=== PATIENT | female | born 1960 | race Caucasian/White ===

== ENCOUNTER 2024-08-11 15:35 | Inpatient (IN) | payer OTHER ==
[~2024-08-11] VITALS: Ht 165.1 cm; Wt 69.9 kg
[2024-08-11 19:47] VITALS: BP 150/80; PULSE 107; RESP 18; TEMP 99.1; O2SAT 98
[2024-08-11] MEDS ORDERED: GABAPENTIN300 MG PO (21:33)
[2024-08-11] MEDS ORDERED: ATORVASTATIN CA40 MG PO (21:33)
[2024-08-11] MEDS ORDERED: DULOXETINE HCL60 MG PO (21:33)
[2024-08-11] MEDS ORDERED: LOSARTAN POTAS100 MG PO (21:33)
[2024-08-11] MEDS ORDERED: METOPROLOL TAR100 MG PO (21:33)
[2024-08-11] MEDS ORDERED: AMLODIPINE BESYL5 MG PO (21:33)
[2024-08-11] MEDS ORDERED: ONDANSETRON HCL INJ 2MG/ML 2ML 2 MG/ML VIAL IV PRN (22:00)
[2024-08-11] MEDS ORDERED: Morphine 2mg Syringe 2 MG/ML SYR IV PRN (22:00)
[2024-08-11] MEDS ORDERED: DEXTROSE 50% SYRINGE 50 ML IV PRN ×2 (22:15)
[2024-08-11 22:17] LABS: BASOPHILS % 0.2 % (0.0-1.0); EOSINOPHILS % 0.1 % (0.0-6.0); HEMATOCRIT 39.6 % (34.2-44.1); HEMOGLOBIN 13.6 g/dL (12.0-16.0); LYMPHOCYTES # (AUTO) 1.2 (1.0-3.2); LYMPHOCYTES % 6.4 % (18.0-39.1); MEAN CORPUSCULAR HEMOGLOBIN 29.2 pg (28-32); MEAN CORPUSCULAR HGB CONC 34.3 g/dL (31-35); MEAN CORPUSCULAR VOLUME 85.2 fL (81-99); MONOCYTES # (AUTO) 1.1 (0.2-0.8); NEUTROPHILS % 86.4 % (38.7-80.0); PLATELET COUNT 258 x10e3/uL (140-360); RED BLOOD COUNT 4.65 x10e6/uL (3.6-5.1); RED CELL DISTRIBUTION WIDTH 12.3 % (11.7-14.4)
[2024-08-11 22:21] VITALS: BP 150/80; PULSE 107; RESP 18; TEMP 99.1; O2SAT 98
[2024-08-11 22:30] LABS: CLARITY,URINE CLEAR (CLEAR); COLOR,URINE YELLOW (YELLOW)
[2024-08-11 22:31] LABS: BILIRUBIN,URINE SMALL (NEGATIVE); GLUCOSE, URINE 500 (NEGATIVE); KETONES,URINE 2+ (NEGATIVE); LEUKOCYTE ESTERASE ,URINE NEGATIVE (NEGATIVE); NITRITE,URINE NEGATIVE (NEGATIVE); PH,URINE 5.5 (5 - 7); PROTEIN,URINE DIPSTICK 1+ (NEGATIVE); URINE UROBILINOGEN 0.2 mg/dL (0.2 - 1)
[2024-08-11 22:32] VITALS: BP 150/50; PULSE 107; RESP 18; TEMP 99.1; O2SAT 98
[2024-08-11] MEDS: HYDROCODONE/APAP 5MG-325MG TAB PO PRN (22:41)
[2024-08-11] MEDS: SODIUM CHLORIDE 0.9% 1000ML 1,000 ML IV SCH (22:43)
[2024-08-11 22:46] LABS: INR 0.96; PROTHROMBIN TIME 13.7 seconds (11.9-14.5)
[2024-08-11] MEDS: INSULIN LISPRO 100 UNIT/1 ML 3ML VIAL SQ ONE (22:46)
[2024-08-11 22:47] LABS: PARTIAL THROMBOPLASTIN TIME 34.4 seconds (23.8-35.5)
[2024-08-11 22:56] LABS: ALBUMIN 3.6 g/dL (3.5-5.0); ALBUMIN/GLOBULIN RATIO 0.7 (0.8-2.0); ANION GAP 21.7 mmol/L (8-16); BILIRUBIN,TOTAL 0.5 mg/dL (0.2-1.2); CALCIUM 10.3 mg/dL (8.4-10.2); CHOL/HDL RATIO 4.1 (3.0-3.6); CREATININE, SERUM 1.16 mg/dL (0.57-1.11); POTASSIUM 3.7 mmol/L (3.5-5.1); TOTAL PROTEIN 8.6 g/dL (6.5-8.1)
[2024-08-11 23:08] VITALS: BP 146/75; PULSE 107; RESP 18; TEMP 99.8; O2SAT 100
[2024-08-11 23:18] LABS: BACTERIA,URINE MODERATE /HPF; EPITHELIAL CELLS,URINE FEW /LPF; RBC,URINE 0-5 /HPF (0-5); WBC,URINE (MAN) 0-5 /HPF (0-5)
[2024-08-11] MEDS: Vancomycin IV 1 GM in SODIUM CHLORIDE 0.9% 250ML 250 ML IV ONE (23:37)
[2024-08-12] VITALS (9 sets, daily range): BP systolic 121–128; BP diastolic 64–73; PULSE 79–108; RESP 18; TEMP 97.1–99.9; O2SAT 96–100
[2024-08-12] MEDS ORDERED: AMLODIPINE BESYLATE 5 MG TAB PO SCH (09:00)
[2024-08-12] MEDS: CEFTRIAXONE 2 GM in SODIUM CHLORIDE 0.9% 100 ML IV SCH (09:36)
[2024-08-12] MEDS: DULOXETINE HCL 30 MG DELAYED RELEASE PO SCH (09:37)
[2024-08-12] MEDS: METOPROLOL TARTRATE 50 MG TAB PO SCH (09:37)
[2024-08-12] MEDS: INSULIN LISPRO 100 UNIT/1 ML 3ML VIAL SQ SCH ×2 (09:48→16:10)
[2024-08-12] MEDS: Doxycycline IV 100 MG in SODIUM CHLORIDE 0.9% 100 ML IV SCH (13:34)
[2024-08-12] MEDS ORDERED: DEXTROSE 50% SYRINGE 50 ML IV PRN (14:15)
[2024-08-12] MEDS ORDERED: DIPHENHYDRAMINE HCL 25 MG CAP PO PRN (14:15)
[2024-08-12] MEDS ORDERED: BENZONATATE 100 MG CAP PO PRN (14:15)
[2024-08-12] MEDS ORDERED: DOCUSATE SODIUM 100 MG CAP PO PRN (14:15)
[2024-08-12] MEDS ORDERED: HYDRALAZINE HCL 20 MG/ML VIAL IV PRN (14:15)
[2024-08-12] MEDS ORDERED: LIDOCAINE 4% PATCH TP PRN (14:15)
[2024-08-12] MEDS ORDERED: ALBUTEROL/IPRATROPIUM 3 ML NEB NEB PRN (14:15)
[2024-08-12] MEDS ORDERED: POTASSIUM CHLORIDE 20 MEQ TAB CR PO PRN (14:15)
[2024-08-12] MEDS: GABAPENTIN 300 MG CAP PO SCH (16:12)
[2024-08-12] MEDS: ENOXAPARIN SOD INJ 40 MG/0.4 ML SYR SC SCH (16:13)
[2024-08-12] MEDS ORDERED: INSULIN GLARGINE 100 UNITS/ML VIAL SQ SCH (21:00)
[2024-08-12] MEDS: SIMETHICONE 80 MG CHEW PO PRN (21:12)
[2024-08-12] MEDS: INSULIN GLARGINE 100 UNITS/ML VIAL SQ SCH (21:55)
[2024-08-13] VITALS (13 sets, daily range): BP systolic 91–141; BP diastolic 43–76; PULSE 77–130; RESP 18–20; TEMP 97.6–98.3; O2SAT 95–99
[2024-08-13] MEDS: ACETAMINOPHEN 325 MG TAB PO PRN (04:50)
[2024-08-13 06:22] LABS: BASOPHILS % 0.3 % (0.0-1.0); EOSINOPHILS % 0.1 % (0.0-6.0); HEMATOCRIT 34.7 % (34.2-44.1); LYMPHOCYTES # (AUTO) 1.3 (1.0-3.2); LYMPHOCYTES % 8.6 % (18.0-39.1); MEAN CORPUSCULAR HEMOGLOBIN 29.6 pg (28-32); MEAN CORPUSCULAR HGB CONC 34.6 g/dL (31-35); MEAN CORPUSCULAR VOLUME 85.5 fL (81-99); MONOCYTES # (AUTO) 1.1 (0.2-0.8); MONOCYTES % 7.2 % (4.4-11.3); NEUTROPHILS # (AUTO) 12.4 (2.1-6.9); NEUTROPHILS % 82.6 % (38.7-80.0); PLATELET COUNT 250 x10e3/uL (140-360); RED BLOOD COUNT 4.06 x10e6/uL (3.6-5.1); RED CELL DISTRIBUTION WIDTH 12.3 % (11.7-14.4); WHITE BLOOD COUNT 15.04 x10e3/uL (4.8-10.8)
[2024-08-13 06:41] LABS: ANION GAP 18.3 mmol/L (8-16); CALCIUM 9.2 mg/dL (8.4-10.2); CHOL/HDL RATIO 4.4 (3.0-3.6); CREATININE, SERUM 0.7 mg/dL (0.57-1.11); MAGNESIUM 1.3 MG/DL (1.3-2.1); PHOSPHORUS 1.9 MG/DL (2.3-4.7); POTASSIUM 3.3 mmol/L (3.5-5.1)
[2024-08-13 07:02] LABS: THYROID STIMULATING HORMONE 0.431 uIU/mL (0.350-4.940)
[2024-08-13] MEDS: PANTOPRAZOLE SOD 40 MG TABEC PO SCH (07:30)
[2024-08-13] MEDS: ASPIRIN 81 MG ENTERIC COATED PO SCH (09:00)
[2024-08-13] MEDS: AMLODIPINE BESYLATE 5 MG TAB PO SCH (09:00)
[2024-08-13] MEDS: LOSARTAN POTASSIUM 25 MG TAB PO SCH (09:00)
[2024-08-13] MEDS: DULOXETINE HCL 30 MG DELAYED RELEASE PO SCH (09:00)
[2024-08-13] MEDS ORDERED: FENTANYL CITRATE/PF 100MCG/2 ML INJ ONE (12:20)
[2024-08-13] MEDS ORDERED: LIDOCAINE HCL 2% LOCAL INJ 5 ML SDV VIAL INJ ONE (12:20)
[2024-08-13] MEDS ORDERED: SEVOFLURANE INHAL SOLN 250 ML PEN BTL ONE (12:20)
[2024-08-13] MEDS ORDERED: PROPOFOL IV EMULSION 10 MG/ML 20 ML VIAL ONE (12:20)
[2024-08-13] MEDS ORDERED: FAMOTIDINE 20 MG/2 ML VIAL IV ONE (12:25)
[2024-08-13] MEDS ORDERED: ONDANSETRON HCL INJ 2MG/ML 2ML 2 MG/ML VIAL ONE ×2 (12:25→12:46)
[2024-08-13] MEDS ORDERED: METOPROLOL TARTRATE INJ 1 MG/ML VIAL ONE (12:46)
[2024-08-13] MEDS ORDERED: METOCLOPRAMIDE HCL 10 MG/2ML VIAL ONE (12:46)
[2024-08-13] MEDS ORDERED: ACETAMINOPHEN 1000 MG/100 ML 100 ML IV ONE (13:03)
[2024-08-13] MEDS ORDERED: POTASSIUM PHOSPHATE 15 MM in SODIUM CHLORIDE 0.9% 250ML 250 ML IV ONE (15:45)
[2024-08-13] MEDS: MAGNESIUM SULFATE 2GM/50ML 50 ML IV ONE (17:14)
[2024-08-13] MEDS: INSULIN LISPRO 100 UNIT/1 ML 3ML VIAL SQ SCH (17:20)
[2024-08-13] MEDS: CEFTRIAXONE 2 GM in SODIUM CHLORIDE 0.9% 100 ML IV SCH (17:45)
[2024-08-13] MEDS: POTASSIUM PHOSPHATE 15 MM in SODIUM CHLORIDE 0.9% 250ML 250 ML IV ONE (18:19)
[2024-08-13] MEDS: INSULIN GLARGINE 100 UNITS/ML VIAL SQ SCH (21:41)
[2024-08-13] MEDS: MELATONIN 5 MG TABLET PO PRN (22:35)
[2024-08-14] VITALS (9 sets, daily range): BP systolic 100–112; BP diastolic 52–71; PULSE 67–123; RESP 17–18; TEMP 97.8–100; O2SAT 96–100
[2024-08-14 06:51] LABS: BASOPHILS # (AUTO) 0.1 (0.0-0.1); BASOPHILS % 0.5 % (0.0-1.0); EOSINOPHILS # (AUTO) 0.2 (0.0-0.4); EOSINOPHILS % 2.3 % (0.0-6.0); HEMATOCRIT 33.2 % (34.2-44.1); HEMOGLOBIN 11.3 g/dL (12.0-16.0); LYMPHOCYTES # (AUTO) 1.9 (1.0-3.2); LYMPHOCYTES % 18.3 % (18.0-39.1); MEAN CORPUSCULAR HEMOGLOBIN 29.4 pg (28-32); MEAN CORPUSCULAR VOLUME 86.5 fL (81-99); MONOCYTES # (AUTO) 0.8 (0.2-0.8); MONOCYTES % 8.1 % (4.4-11.3); NEUTROPHILS # (AUTO) 7.3 (2.1-6.9); NEUTROPHILS % 69.7 % (38.7-80.0); PLATELET COUNT 240 x10e3/uL (140-360); RED BLOOD COUNT 3.84 x10e6/uL (3.6-5.1); RED CELL DISTRIBUTION WIDTH 12.6 % (11.7-14.4); WHITE BLOOD COUNT 10.41 x10e3/uL (4.8-10.8)
[2024-08-14 07:31] LABS: ANION GAP 14.4 mmol/L (8-16); CALCIUM 8.5 mg/dL (8.4-10.2); CREATININE, SERUM 0.61 mg/dL (0.57-1.11); MAGNESIUM 1.6 MG/DL (1.3-2.1); PHOSPHORUS 2.2 MG/DL (2.3-4.7)
[2024-08-14 07:33] LABS: POTASSIUM 3.4 mmol/L (3.5-5.1)
[2024-08-14 12:00] LABS: PROLACTIN 37.3 ng/mL (3.6-25.2)
[2024-08-14] MEDS: POTASSIUM PHOSPHATE 15 MM in SODIUM CHLORIDE 0.9% 250ML 250 ML IV ONE (15:12)
[2024-08-14] MEDS: POTASSIUM CHLORIDE 20 MEQ TAB CR PO ONE (15:19)
[2024-08-14] MEDS: INSULIN LISPRO 100 UNIT/1 ML 3ML VIAL SQ SCH (18:13)
[2024-08-14] MEDS: INSULIN GLARGINE 100 UNITS/ML VIAL SQ SCH (20:47)
[2024-08-15] VITALS (10 sets, daily range): BP systolic 97–134; BP diastolic 52–72; PULSE 77–105; RESP 17–20; TEMP 98–99.2; O2SAT 95–100
[2024-08-15 06:00] LABS: BASOPHILS # (AUTO) 0.1 (0.0-0.1); BASOPHILS % 0.6 % (0.0-1.0); EOSINOPHILS # (AUTO) 0.2 (0.0-0.4); EOSINOPHILS % 2.4 % (0.0-6.0); HEMATOCRIT 33.6 % (34.2-44.1); HEMOGLOBIN 11.3 g/dL (12.0-16.0); LYMPHOCYTES % 23.5 % (18.0-39.1); MEAN CORPUSCULAR HEMOGLOBIN 29.4 pg (28-32); MEAN CORPUSCULAR HGB CONC 33.6 g/dL (31-35); MEAN CORPUSCULAR VOLUME 87.5 fL (81-99); MONOCYTES # (AUTO) 0.7 (0.2-0.8); MONOCYTES % 8.6 % (4.4-11.3); NEUTROPHILS # (AUTO) 5.3 (2.1-6.9); NEUTROPHILS % 63.6 % (38.7-80.0); PLATELET COUNT 256 x10e3/uL (140-360); RED BLOOD COUNT 3.84 x10e6/uL (3.6-5.1); RED CELL DISTRIBUTION WIDTH 12.5 % (11.7-14.4); WHITE BLOOD COUNT 8.33 x10e3/uL (4.8-10.8)
[2024-08-15 06:30] LABS: ANION GAP 15.6 mmol/L (8-16); CALCIUM 8.2 mg/dL (8.4-10.2); CREATININE, SERUM 0.6 mg/dL (0.57-1.11); PHOSPHORUS 3.1 MG/DL (2.3-4.7); POTASSIUM 3.6 mmol/L (3.5-5.1)
[2024-08-16] VITALS (9 sets, daily range): BP systolic 110–135; BP diastolic 64–74; PULSE 82–99; RESP 16–20; TEMP 97.9–98.8; O2SAT 93–99
[2024-08-16 08:54] LABS: BASOPHILS % 0.3 % (0.0-1.0); EOSINOPHILS # (AUTO) 0.1 (0.0-0.4); EOSINOPHILS % 1.3 % (0.0-6.0); HEMATOCRIT 35.2 % (34.2-44.1); HEMOGLOBIN 11.6 g/dL (12.0-16.0); LYMPHOCYTES # (AUTO) 1.2 (1.0-3.2); LYMPHOCYTES % 19.6 % (18.0-39.1); MEAN CORPUSCULAR HEMOGLOBIN 28.8 pg (28-32); MEAN CORPUSCULAR VOLUME 87.3 fL (81-99); MONOCYTES # (AUTO) 0.7 (0.2-0.8); MONOCYTES % 10.7 % (4.4-11.3); NEUTROPHILS # (AUTO) 4.2 (2.1-6.9); NEUTROPHILS % 66.5 % (38.7-80.0); PLATELET COUNT 256 x10e3/uL (140-360); RED BLOOD COUNT 4.03 x10e6/uL (3.6-5.1); RED CELL DISTRIBUTION WIDTH 12.4 % (11.7-14.4); WHITE BLOOD COUNT 6.24 x10e3/uL (4.8-10.8)
[2024-08-16 09:15] LABS: ANION GAP 13.8 mmol/L (8-16); CALCIUM 8.4 mg/dL (8.4-10.2); CREATININE, SERUM 0.61 mg/dL (0.57-1.11); POTASSIUM 3.8 mmol/L (3.5-5.1)
[2024-08-16] MEDS ORDERED: GADOBENATE DIMEGLUMINE 1 ML IV ONE (12:13)
[2024-08-16] MEDS: FLUCONAZOLE 100 MG/NS 50 ML 50 ML IV SCH (17:11)
[2024-08-17] VITALS (10 sets, daily range): BP systolic 93–122; BP diastolic 52–67; PULSE 75–97; RESP 16–18; TEMP 97.7–98.8; O2SAT 94–100
[2024-08-17 06:09] LABS: BASOPHILS % 0.6 % (0.0-1.0); EOSINOPHILS # (AUTO) 0.1 (0.0-0.4); EOSINOPHILS % 2.2 % (0.0-6.0); HEMATOCRIT 33.1 % (34.2-44.1); HEMOGLOBIN 10.7 g/dL (12.0-16.0); LYMPHOCYTES # (AUTO) 1.5 (1.0-3.2); MEAN CORPUSCULAR HEMOGLOBIN 28.9 pg (28-32); MEAN CORPUSCULAR HGB CONC 32.3 g/dL (31-35); MEAN CORPUSCULAR VOLUME 89.5 fL (81-99); MONOCYTES % 15.2 % (4.4-11.3); NEUTROPHILS # (AUTO) 3.7 (2.1-6.9); NEUTROPHILS % 57.4 % (38.7-80.0); PLATELET COUNT 233 x10e3/uL (140-360); RED CELL DISTRIBUTION WIDTH 12.4 % (11.7-14.4); WHITE BLOOD COUNT 6.43 x10e3/uL (4.8-10.8)
[2024-08-17 06:43] LABS: ANION GAP 13.9 mmol/L (8-16); CALCIUM 8.4 mg/dL (8.4-10.2); CREATININE, SERUM 0.6 mg/dL (0.57-1.11); POTASSIUM 3.9 mmol/L (3.5-5.1)
[2024-08-18] VITALS (9 sets, daily range): BP systolic 105–127; BP diastolic 56–72; PULSE 76–113; RESP 16–20; TEMP 97.2–98.2; O2SAT 94–100
[2024-08-19 03:35] VITALS: BP 122/67; PULSE 103; RESP 20; TEMP 98.2; O2SAT 97
[2024-08-19 06:45] VITALS: PULSE 99; RESP 18; O2SAT 95
[2024-08-19 07:48] VITALS: BP 122/67; PULSE 99; RESP 18; TEMP 98.2; O2SAT 95
[2024-08-19 08:41] VITALS: BP 130/68; PULSE 84; RESP 20; TEMP 98.4; O2SAT 97
[2024-08-19 14:35] VITALS: BP 123/67; PULSE 76; RESP 18; TEMP 97.9; O2SAT 100
[2024-08-19] MEDS ORDERED: INSULIN LISPRO 100 UNIT/1 ML 3ML VIAL SQ SCH (16:30)
[2024-08-19] MEDS ORDERED: ATORVASTATIN 10 MG TAB PO SCH (21:00)
== END 2024-08-19 17:45 | disposition home or self-care (01) | DRG 853 ==
LOC: MED/SURG2 15:35
PROVIDERS: ADMIT Internal Medicine; ATTEND Internal Medicine
PROC: 0KBV0ZZ Excision of Right Foot Muscle, Open Approach (ICD-10-PCS; principal; 2024-08-13 12:22)
DX: A41.9 Sepsis, unspecified organism (principal); E11.10 Type 2 diabetes mellitus with ketoacidosis without coma; E11.52 Type 2 diabetes mellitus with diabetic peripheral angiopathy with gangrene; L03.115 Cellulitis of right lower limb; L02.611 Cutaneous abscess of right foot; L97.518 Non-pressure chronic ulcer of other part of right foot with other specified severity; E11.621 Type 2 diabetes mellitus with foot ulcer; E11.42 Type 2 diabetes mellitus with diabetic polyneuropathy; E11.65 Type 2 diabetes mellitus with hyperglycemia; I10 Essential (primary) hypertension; E78.00 Pure hypercholesterolemia, unspecified; R32 Unspecified urinary incontinence; M67.02 Short Achilles tendon (acquired), left ankle; M67.01 Short Achilles tendon (acquired), right ankle; M20.42 Other hammer toe(s) (acquired), left foot; M20.41 Other hammer toe(s) (acquired), right foot; M19.171 Post-traumatic osteoarthritis, right ankle and foot; M25.474 Effusion, right foot; B96.1 Klebsiella pneumoniae [K. pneumoniae] as the cause of diseases classified elsewhere; B95.1 Streptococcus, group B, as the cause of diseases classified elsewhere; H53.8 Other visual disturbances; I25.10 Atherosclerotic heart disease of native coronary artery without angina pectoris; D35.2 Benign neoplasm of pituitary gland; S39.92XA Unspecified injury of lower back, initial encounter; W18.30XA Fall on same level, unspecified, initial encounter; Y92.230 Patient room in hospital as the place of occurrence of the external cause; Z98.890 Other specified postprocedural states; Z91.148 Patient's other noncompliance with medication regimen for other reason; Z87.440 Personal history of urinary (tract) infections; Z90.710 Acquired absence of both cervix and uterus; Z85.3 Personal history of malignant neoplasm of breast; Z92.3 Personal history of irradiation; Z88.8 Allergy status to other drugs, medicaments and biological substances; Z83.3 Family history of diabetes mellitus; Z82.49 Family history of ischemic heart disease and other diseases of the circulatory system
CPT/HCPCS: 36415; 70450; 70553; 71045; 80048; 80053; 80061; 81001; 82948; 83001; 83036; 83615; 83735; 84100; 84146; 84443; 85025; 85610; 85730; 86140; 87040; 87071; 87075; 87086; 87186; 87205; 93005; 93306; 93925; 93970; 94799; 96372; 99252; J0696; J1308; J1450; J1650; J2003; J2405; J2470; J2765; J3475; J7030; J7050

== ENCOUNTER 2024-10-04 05:55 | Inpatient (IN) | payer OTHER ==
[~2024-10-04] VITALS: Ht 162.6 cm; Wt 70.8 kg
[2024-10-04] VITALS (9 sets, daily range): BP systolic 106–126; BP diastolic 63–70; PULSE 75–98; RESP 18–20; TEMP 97.9–98.3; O2SAT 96–100
[~2024-10-04 05:55] MED LIST: AMLODIPINE BESYL5 MG PO; ATORVASTATIN CA40 MG PO; DULOXETINE HCL60 MG PO; GABAPENTIN300 MG PO; LOSARTAN POTAS100 MG PO; METOPROLOL TAR100 MG PO
[2024-10-04 06:53] LABS: BASOPHILS % 0.3 % (0.0-1.0); EOSINOPHILS % 1.3 % (0.0-6.0); LYMPHOCYTES % 11.7 % (18.0-39.1); MONOCYTES % 7.9 % (4.4-11.3); NEUTROPHILS % 78.4 % (38.7-80.0); RED CELL DISTRIBUTION WIDTH 12.5 % (11.7-14.4)
[2024-10-04] MEDS ORDERED: SODIUM CHLORIDE 0.9% 1000ML 1,000 ML IV SCH (07:00)
[2024-10-04 07:11] LABS: INR 0.97
[2024-10-04] MEDS: SODIUM CHLORIDE 0.9% 1000ML 2,100 ML IV ONE (07:16)
[2024-10-04] MEDS: ACETAMINOPHEN 325 MG TAB PO ONE (07:17)
[2024-10-04 07:19] LABS: EST GLOMERULAR FILTRATION RATE 90.0 ML/MIN (>=60)
[2024-10-04] MEDS ORDERED: IOPAMIDOL 370 MG/ML 100 ML INFUS..BTL INJ ONE (07:32)
[2024-10-04] MEDS ORDERED: DIPHENHYDRAMINE HCL 25 MG CAP PO PRN (09:30)
[2024-10-04] MEDS ORDERED: DOCUSATE SODIUM 100 MG CAP PO PRN (09:30)
[2024-10-04] MEDS ORDERED: LIDOCAINE 4% PATCH TP PRN (09:30)
[2024-10-04] MEDS ORDERED: DEXTROSE 50% SYRINGE 50 ML IV PRN (09:30)
[2024-10-04] MEDS ORDERED: MELATONIN 5 MG TABLET PO PRN (09:30)
[2024-10-04] MEDS ORDERED: SIMETHICONE 80 MG CHEW PO PRN (09:30)
[2024-10-04] MEDS ORDERED: POTASSIUM CHLORIDE 20 MEQ TAB CR PO PRN (09:30)
[2024-10-04] MEDS ORDERED: BENZONATATE 100 MG CAP PO PRN (09:30)
[2024-10-04] MEDS ORDERED: ALBUTEROL/IPRATROPIUM 3 ML NEB NEB PRN (09:30)
[2024-10-04] MEDS ORDERED: HYDRALAZINE HCL 20 MG/ML VIAL IV PRN (09:30)
[2024-10-04] MEDS: DEXTROSE 5%/0.9% SOD CHL 1,000 ML IV SCH (11:35)
[2024-10-04] MEDS: Vancomycin IV 1 GM in SODIUM CHLORIDE 0.9% 250ML 250 ML IV SCH (11:35)
[2024-10-04] MEDS ORDERED: ASPIRIN EC81 MG PO (13:20)
[2024-10-04] MEDS ORDERED: LANTUS 3ML100 UNITS/ SQ (13:20)
[2024-10-04] MEDS ORDERED: HUMALOG SQ (13:21)
[2024-10-04] MEDS: ACETAMINOPHEN 325 MG TAB PO PRN (13:52)
[2024-10-04] MEDS ORDERED: HUMALOG100 UNIT/3 SQ (15:42)
[2024-10-04] MEDS: ENOXAPARIN SOD INJ 40 MG/0.4 ML SYR SC SCH (16:15)
[2024-10-04] MEDS: METOPROLOL TARTRATE 50 MG TAB PO SCH (16:15)
[2024-10-04] MEDS ORDERED: METOPROLOL TARTRATE 50 MG TAB PO SCH (17:00)
[2024-10-04] MEDS: GABAPENTIN 300 MG CAP PO SCH (17:06)
[2024-10-04] MEDS ORDERED: NON-FORMULARY MEDICATION (Insulin Glargine (Lantus 3ML Pen) 50 UNITS) SQ SCH (21:00)
[2024-10-04] MEDS ORDERED: ATORVASTATIN 40 MG TAB PO SCH (21:00)
[2024-10-04] MEDS: ATORVASTATIN 40 MG TAB PO SCH (21:06)
[2024-10-04] MEDS: INSULIN GLARGINE 100 UNITS/ML VIAL SQ SCH (21:08)
[2024-10-05] VITALS (13 sets, daily range): BP systolic 102–129; BP diastolic 50–73; PULSE 88–97; RESP 16–20; TEMP 98–98.7; O2SAT 95–100
[2024-10-05 06:49] LABS: BASOPHILS % 0.3 % (0.0-1.0); EOSINOPHILS % 3.5 % (0.0-6.0); LYMPHOCYTES % 35.1 % (18.0-39.1); MONOCYTES % 10.7 % (4.4-11.3); NEUTROPHILS % 50.2 % (38.7-80.0); RED CELL DISTRIBUTION WIDTH 12.4 % (11.7-14.4)
[2024-10-05 07:13] LABS: EST GLOMERULAR FILTRATION RATE 101.0 ML/MIN (>=60)
[2024-10-05 07:16] LABS: CHOL/HDL RATIO 3.5 (3.0-3.6); LDL CHOLESTEROL 73.0 MG/DL (60-130)
[2024-10-05] MEDS: DULOXETINE HCL 30 MG DELAYED RELEASE PO SCH (08:54)
[2024-10-05] MEDS: PANTOPRAZOLE SOD 40 MG TABEC PO SCH (08:55)
[2024-10-05] MEDS: ASPIRIN 81 MG ENTERIC COATED PO SCH (08:55)
[2024-10-05] MEDS: AMLODIPINE BESYLATE 5 MG TAB PO SCH (08:55)
[2024-10-05] MEDS: LOSARTAN POTASSIUM 100 MG TAB PO SCH (08:55)
[2024-10-05] MEDS ORDERED: ASPIRIN 81 MG ENTERIC COATED PO SCH (09:00)
[2024-10-05] MEDS ORDERED: LOSARTAN POTASSIUM 100 MG TAB PO SCH (09:00)
[2024-10-05] MEDS ORDERED: SODIUM CHLORIDE 0.9% 100 ML ONE (09:46)
[2024-10-05] MEDS ORDERED: IOPAMIDOL 370 MG/ML 100 ML INFUS..BTL INJ ONE (09:46)
[2024-10-05] MEDS ORDERED: DEXTROSE 50% SYRINGE 50 ML IV PRN (12:45)
[2024-10-05] MEDS: INSULIN LISPRO 100 UNIT/1 ML 3ML VIAL SQ SCH (16:16)
[2024-10-06] VITALS (8 sets, daily range): BP systolic 117–127; BP diastolic 58–71; PULSE 83–98; RESP 14–20; TEMP 97.3–98.5; O2SAT 97–100
[2024-10-06 06:22] LABS: BASOPHILS % 0.8 % (0.0-1.0); EOSINOPHILS % 3.7 % (0.0-6.0); LYMPHOCYTES % 34.7 % (18.0-39.1); MONOCYTES % 9.3 % (4.4-11.3); NEUTROPHILS % 51.3 % (38.7-80.0); RED CELL DISTRIBUTION WIDTH 12.3 % (11.7-14.4)
[2024-10-06 07:03] LABS: EST GLOMERULAR FILTRATION RATE 99.0 ML/MIN (>=60)
[2024-10-06] MEDS: AMLODIPINE BESYLATE 5 MG TAB PO SCH (08:22)
[2024-10-06] MEDS: POLYETHYLENE GLYCOL 3350 17 GM PACK PO PRN (16:08)
[2024-10-06] MEDS: TRAMADOL HCL 50 MG TAB PO PRN (16:39)
[2024-10-06] MEDS: ONDANSETRON HCL INJ 2MG/ML 2ML 2 MG/ML VIAL IV PRN (21:26)
[2024-10-06] MEDS: Morphine 4mg INJECTION 4 MG/ML INJ IV PRN (21:26)
[2024-10-07] VITALS (9 sets, daily range): BP systolic 113–139; BP diastolic 62–76; PULSE 93–102; RESP 16–19; TEMP 97.6–98.6; O2SAT 98–100
[2024-10-07 05:47] LABS: BASOPHILS % 0.5 % (0.0-1.0); EOSINOPHILS % 3.7 % (0.0-6.0); LYMPHOCYTES % 38.5 % (18.0-39.1); MONOCYTES % 8.2 % (4.4-11.3); NEUTROPHILS % 48.8 % (38.7-80.0); RED CELL DISTRIBUTION WIDTH 12.3 % (11.7-14.4)
[2024-10-07 06:15] LABS: EST GLOMERULAR FILTRATION RATE 98.0 ML/MIN (>=60)
[2024-10-07 09:39] LABS: EOSINOPHILS % (MANUAL) 7 % (0-7); LYMPHOCYTES % (MANUAL) 29 % (19-48); MONOCYTES % (MANUAL) 9 % (3.4-9.0); NEUTROPHILS % (MANUAL) 50 % (40-74); PLATELET ESTIMATE ADEQUATE; REACTIVE LYMPHOCYTES 5
[2024-10-07 09:40] LABS: PLATELET MORPHOLOGY COMMENT NORMAL; RBC MORPHOLOGY COMMENT NORMAL
[2024-10-07] MEDS: HYDROCODONE/APAP 5MG-325MG TAB PO PRN (21:38)
[2024-10-08] VITALS (11 sets, daily range): BP systolic 116–138; BP diastolic 63–81; PULSE 82–99; RESP 17–18; TEMP 97.6–98.6; O2SAT 96–100
[2024-10-08 07:23] LABS: BASOPHILS % 0.8 % (0.0-1.0); EOSINOPHILS % 3.5 % (0.0-6.0); LYMPHOCYTES % 30.5 % (18.0-39.1); MONOCYTES % 10.1 % (4.4-11.3); NEUTROPHILS % 54.9 % (38.7-80.0); RED CELL DISTRIBUTION WIDTH 12.4 % (11.7-14.4)
[2024-10-08 07:36] LABS: EST GLOMERULAR FILTRATION RATE 97.0 ML/MIN (>=60)
[2024-10-08] MEDS ORDERED: LIDOCAINE HCL 2% LOCAL INJ 5 ML SDV VIAL INJ ONE (10:03)
[2024-10-08] MEDS ORDERED: PROPOFOL IV EMULSION 10 MG/ML 20 ML VIAL ONE (10:03)
[2024-10-08] MEDS ORDERED: FENTANYL CITRATE/PF 100MCG/2 ML INJ ONE (10:22)
[2024-10-08] MEDS ORDERED: ONDANSETRON HCL INJ 2MG/ML 2ML 2 MG/ML VIAL ONE (10:32)
[2024-10-08] MEDS ORDERED: ACETAMINOPHEN 1000 MG/100 ML 100 ML IV ONE (10:36)
[2024-10-08] MEDS ORDERED: SEVOFLURANE INHAL SOLN 250 ML PEN BTL ONE (10:36)
[2024-10-08] MEDS ORDERED: EPHEDRINE SULFATE INJ 50 MG/ML VIAL ONE (10:51)
[2024-10-08] MEDS ORDERED: PHENYLEPHRINE HCL 1% 10 MG/ML VIAL ONE (10:56)
[2024-10-08] MEDS ORDERED: SODIUM CHLORIDE 0.9% INJ 10 ML VIAL ONE (10:56)
[2024-10-08] MEDS: ONDANSETRON HCL INJ 2MG/ML 2ML 2 MG/ML VIAL ONE (12:13)
[2024-10-08] MEDS: HYDROMORPHONE 1MG/1ML INJ IV PRN (16:50)
[2024-10-09] VITALS (9 sets, daily range): BP systolic 104–127; BP diastolic 50–75; PULSE 75–108; RESP 18–20; TEMP 97.2–99.3; O2SAT 96–98
[2024-10-09] MEDS: Vancomycin IV 1 GM in SODIUM CHLORIDE 0.9% 250ML 250 ML IV SCH (12:43)
[2024-10-09] MEDS ORDERED: CIPROFLOXACIN 400 MG/D5W 200ML 200 ML IV SCH (18:30)
[2024-10-09] MEDS ORDERED: CIPROFLOXACIN 400 MG/D5W 200ML 200 ML IV ONE (21:17)
[2024-10-09] MEDS: CIPROFLOXACIN 400 MG/D5W 200ML 200 ML IV SCH (21:34)
[2024-10-10] VITALS (9 sets, daily range): BP systolic 105–128; BP diastolic 66–85; PULSE 73–100; RESP 18–22; TEMP 97.6–99.3; O2SAT 95–100
[2024-10-10 06:38] LABS: BASOPHILS % 0.4 % (0.0-1.0); EOSINOPHILS % 1.3 % (0.0-6.0); LYMPHOCYTES % 20.3 % (18.0-39.1); MONOCYTES % 10.7 % (4.4-11.3); NEUTROPHILS % 66.7 % (38.7-80.0); RED CELL DISTRIBUTION WIDTH 12.8 % (11.7-14.4)
[2024-10-10 07:08] LABS: EST GLOMERULAR FILTRATION RATE 98.0 ML/MIN (>=60)
[2024-10-11] VITALS (8 sets, daily range): BP systolic 115–130; BP diastolic 60–72; PULSE 95–101; RESP 18; TEMP 97.9–98.8; O2SAT 92–97
[2024-10-11] MEDS: HYDROCODONE/APAP 10MG-325MG TAB PO PRN (14:21)
[2024-10-12] VITALS (7 sets, daily range): BP systolic 113–132; BP diastolic 65–73; PULSE 93–101; RESP 16–19; TEMP 97.4–98.5; O2SAT 92–100
== END 2024-10-12 17:38 | DRG 617 ==
LOC: ER 05:59 → ERHOLD 07:11 → MED/SURG3 12:27
PROVIDERS: ADMIT Internal Medicine; ATTEND Internal Medicine
PROC: 05HY33Z Insertion of Infusion Device into Upper Vein, Percutaneous Approach (ICD-10-PCS; 2024-10-05)
PROC: 0L8N0ZZ Division of Right Lower Leg Tendon, Open Approach (ICD-10-PCS; 2024-10-08)
PROC: 0KBS0ZZ Excision of Right Lower Leg Muscle, Open Approach (ICD-10-PCS; 2024-10-08)
PROC: 0Y6M0Z9 Detachment at Right Foot, Partial 1st Ray, Open Approach (ICD-10-PCS; principal; 2024-10-08 10:22)
DX: E11.621 Type 2 diabetes mellitus with foot ulcer (principal); L03.115 Cellulitis of right lower limb; M86.9 Osteomyelitis, unspecified; M00.9 Pyogenic arthritis, unspecified; L97.414 Non-pressure chronic ulcer of right heel and midfoot with necrosis of bone; I10 Essential (primary) hypertension; E11.319 Type 2 diabetes mellitus with unspecified diabetic retinopathy without macular edema; E11.51 Type 2 diabetes mellitus with diabetic peripheral angiopathy without gangrene; E66.9 Obesity, unspecified; D35.2 Benign neoplasm of pituitary gland; R06.00 Dyspnea, unspecified; F03.90 Unspecified dementia, unspecified severity, without behavioral disturbance, psychotic disturbance, mood disturbance, and anxiety; E78.00 Pure hypercholesterolemia, unspecified; E11.69 Type 2 diabetes mellitus with other specified complication; H54.7 Unspecified visual loss; B96.5 Pseudomonas (aeruginosa) (mallei) (pseudomallei) as the cause of diseases classified elsewhere; K27.9 Peptic ulcer, site unspecified, unspecified as acute or chronic, without hemorrhage or perforation; R53.81 Other malaise; B95.2 Enterococcus as the cause of diseases classified elsewhere; G89.18 Other acute postprocedural pain; B96.89 Other specified bacterial agents as the cause of diseases classified elsewhere; I25.10 Atherosclerotic heart disease of native coronary artery without angina pectoris; Z79.4 Long term (current) use of insulin; Z88.5 Allergy status to narcotic agent; Z91.048 Other nonmedicinal substance allergy status; Z85.3 Personal history of malignant neoplasm of breast; Z92.3 Personal history of irradiation; Z79.82 Long term (current) use of aspirin; Z68.26 Body mass index [BMI] 26.0-26.9, adult
CPT/HCPCS: 36415; 36569; 71045; 73706; 80048; 80053; 80061; 80202; 82948; 83036; 83605; 85025; 85610; 85730; 87040; 87071; 87075; 87186; 87205; 88304; 88305; 88307; 88311; 93005; 93306; 94799; 99252; 99284; J0692; J1171; J1650; J1815; J2003; J2270; J2371; J2405; J2470; J2543; J3373; J7030; J7042; J7050; Q9967

== ENCOUNTER → 2024-12-02 | Outpatient (REF) | payer OTHER ==
[~2024-12-02] MED LIST changes: +ASPIRIN EC81 MG PO; +HUMALOG SQ; +HUMALOG100 UNIT/3 SQ; +LANTUS 3ML100 UNITS/ SQ
== END ==
LOC: MAMMO 13:10
PROVIDERS: ATTEND Internal Medicine
DX: Z12.31 Encounter for screening mammogram for malignant neoplasm of breast (principal)
CPT/HCPCS: 77067